=== PATIENT | male | born 1990 | race African-American/Black ===

== ENCOUNTER 2021-08-11 18:03 | Emergency (ER) | payer OTHER ==
[~2021-08-11] VITALS: Ht 172.7 cm; Wt 65.8 kg
[~2021-08-11 18:03] MED LIST: RISPERIDONE PO; WELLBUTRIN XL300 MG PO
[2021-08-11 18:59] LABS: ABSOLUTE NEUTROPHILS 1.9 thou/uL (1.4-8.2); BASOPHILS 1.1 % (0.0-2.0); EOSINOPHILS 3.4 % (0.0-3.0); HEMATOCRIT 37.8 % (42.0-52.0); HEMOGLOBIN 12.1 gm/dL (14.0-18.0); LYMPHOCYTES 32.4 % (24.0-44.0); MCH 26.5 pg (26.0-34.0); MCHC 32.1 g/dL (28.0-37.0); MCV 82.5 fL (80.0-100.0); MONOCYTES 11.9 % (1.0-8.0); PLATELET COUNT 323 thou/uL (150-400); POLYS 51.2 % (36.0-66.0); RBC 4.58 mil/uL (4.50-6.00); RDW 14.1 % (10.5-14.5); WBC 3.7 thou/uL (4.0-11.0)
[2021-08-11 19:14] LABS: ANION GAP 6 mmol/L (7-16); BUN 10 mg/dL (7-18); CALCIUM 8.7 mg/dL (8.5-10.1); CHLORIDE 107 mmol/L (98-107); CO2 26 mmol/L (21-32); CREATININE 1.3 mg/dL (0.7-1.3); GLUCOSE 116 mg/dL (74-106); SODIUM 139 mmol/L (136-145)
[2021-08-11 19:20] LABS: ALBUMIN 3.3 g/dL (3.4-5.0); LIPASE 94 U/L (73-393); SALICYLATE < 2.8 mg/dL (2.8-20.0); SGOT 14 U/L (15-37); SGPT 18 U/L (16-63); TOTAL BILIRUBIN 0.2 mg/dL (0.2-1.0); TOTAL PROTEIN 7.2 g/dL (6.4-8.2)
[2021-08-11 23:43] LABS: AMP/METHAMP POSITIVE (Negative); BARBITURATES Negative (Negative); BENZODIAZEPINES Negative (Negative); COCAINE Negative (Negative); METHADONE Negative (Negative); OPIATES Negative (Negative); PCP Negative (Negative)
--- NOTE | 2021-08-12 08:10 | EKG ---
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
[2021-08-12 22:26] VITALS: BP 114/67
== END 2021-08-12 22:26 ==
LOC: ER 18:03
PROVIDERS: Emergency Medicine
DX: R45.851 Suicidal ideations (principal); R51.9 Headache, unspecified; Z20.822 Contact with and (suspected) exposure to COVID-19